=== PATIENT | male | born 1990 ===

== ENCOUNTER 2017-08-09 22:28 | Emergency (ER) | payer BC | END 2017-08-09 23:39 | disposition home or self-care (01) | LOC: ERS 22:28 | DX: F41.9 Anxiety disorder, unspecified (principal); F90.9 Attention-deficit hyperactivity disorder, unspecified type; F32.9 Major depressive disorder, single episode, unspecified; Z79.899 Other long term (current) drug therapy | CPT/HCPCS: 93005 ==

== ENCOUNTER 2019-06-06 14:51 | Emergency (ER) | payer BC | END 2019-06-06 15:59 | LOC: ERS 14:51 | DX: Z53.21 Procedure and treatment not carried out due to patient leaving prior to being seen by health care provider (principal) ==